=== PATIENT | male | born 1980 | race Caucasian/White ===

== ENCOUNTER 2017-10-11 18:27 | Emergency (ER) | payer OTHER ==
[2017-10-11 18:52] VITALS: BP 117/80; PULSE 65; TEMP 98.5; BMI 22.8
--- NOTE | 2017-10-11 19:12 | PDOC ---
History of Present Illness - History of Present Illness Initial Comments: 10/11/17 19:37 The patient is a 36 year old male, with no significant PMH, who presents to the emergency department complaining of pain to the 1st digit of the left foot today. The patient states he was at work when a table fell on his left foot. The patient reports he went to Urgent care today complaining of bleeding to the left 1st digit and they told him to report to the ED for IV antibiotics. The patient reports severe pain to the left toe, no relief with bacitracin. The patient denies any numbness or tingling. Denies any discharge or odor. PAST MEDICAL HISTORY: no significant history PAST SURGICAL HISTORY: no significant history FAMILY HISTORY: no pertinent history SOCIAL HISTORY: Pt lives with family and is employed. MEDICATIONS: reviewed ALLERGIES: As per nursing notes ROS General: No fevers or chills, no weakness, no weight loss CardioVascular: No chest pain or shortness of breath Respiratory:No cough, or wheezing. Gastrointestinal: no nausea, vomiting, diarrhea or constipation, No rectal bleeding Genitourinary: No dysuria, hematuria, or frequency Musculoskeletal: +Left greater toe pain. Neurologic: No headache, vertigo, dizziness or loss of consciousness Psychiatric: nor depression Skin: +Ecchymosis to the left greater toe All other systems reviewed and normal PE GENERAL: The patient is awake, alert, and fully oriented, in no acute distress. HEAD: Normal with no signs of trauma. EYES: Pupils equal, round and reactive to light, extraocular movements intact, sclera anicteric, conjunctiva clear. EXTREMITIES: +Tenderness to the left greater toe distally to palpation. No active bleeding but lifted with large subungual. NEUROLOGICAL: Normal speech. PSYCH: Normal mood, normal affect. SKIN: +Left greater toe swollen with ecchymosis <Sarika Thompson - Last Filed: 10/11/17 19:38> - General History Source: Patient Exam Limitations: No Limitations - History of Present Illness Initial Comments: A portion of this note was documented by scribe services under my direction. I have reviewed the details of the note, within reason, and agree with the documentation. The case summary and management plan written by me. Procedure note: Nail bed laceration repair Toe was anesthetized via digital block with 5 mL of lidocaine no epinephrine The toenail was removed and the nailbed was repaired with 4 absorbable sutures of 4. 0 Polysorb. Toenail was replaced and a dressing was placed over the toe. Patient tolerated well 10/11/17 20:38 Assessment and plan: This is a 36-year-old male with a fracture of the distal phalanx of his great toe secondary to a crush type injury while at work. The in addition to that there was a secondary nailbed laceration which required removal of the nail and repair the laceration. Patient was given Zosyn IV and discharged home with a prescription for Augmentin. Patient was also given 3 tablets of Percocet to take for the first 24 hours for pain. Patient discharged home with his <Angela Herrera I - Last Filed: 10/11/17 21:03> - General Chief Complaint: Pain, Acute Stated Complaint: LEFT 1ST TOE PAIN Time Seen by Provider: 10/11/17 19:08 Past History <Sarika Thompson - Last Filed: 10/11/17 19:38> - Past Medical History COPD: No Psychiatric Problems: Yes - Surgical History Abdominal Surgery: Yes (HERNIA) - Suicide/Smoking/Psychosocial Hx Smoking History: Never smoked Hx Alcohol Use: No Drug/Substance Use Hx: No Substance Use Type: None <Angela Herrera I - Last Filed: 10/11/17 21:03> - Past Medical History Allergies/Adverse Reactions: Allergies Allergy/AdvReac Type Severity Reaction Status Date / Time naproxen Allergy Verified 10/11/17 18:47 Home Medications: Ambulatory Orders Amoxicillin/Potassium Clav [Augmentin 500-125 Tablet] 1 each PO BID #14 tablet 10/11/17 Bupropion HCl [Wellbutrin Sr] 150 mg PO DAILY 10/11/17 Clonazepam [Klonopin] 1 - 2 mg PO ASDIR 10/11/17 Desvenlafaxine Succinate [Pristiq ER] 200 mg PO DAILY 10/11/17 Oxycodone HCl/Acetaminophen [Percocet 5-325 mg Tablet] 1 tab PO Q4H #6 tablet MDD 6 10/11/17 Quetiapine Fumarate [Seroquel -] 25 mg PO HS 10/11/17 *Physical Exam - Vital Signs Last Vital Signs Temp Pulse Resp BP Pulse Ox 98.5 F 65 18 117/80 100 10/11/17 18:28 08/04/18 18:28 10/11/17 18:28 10/11/17 18:28 10/11/17 18:28 <Sarika Thompson - Last Filed: 10/11/17 19:38> - Vital Signs Last Vital Signs Temp Pulse Resp BP Pulse Ox 98.5 F 65 18 117/80 100 10/11/17 18:28 10/11/17 18:28 10/11/17 18:28 10/11/17 18:28 10/11/17 18:28 <Angela Herrera I - Last Filed: 10/11/17 21:03> *DC/Admit/Observation/Transfer - Attestations Scribe Attestion: 10/11/17 19:38 Documentation prepared by Sarika Thompson, acting as medical education specialist for Angela Herrera MD. <Sarika Thompson - Last Filed: 10/11/17 19:38> <Angela Herrera I - Last Filed: 10/11/17 21:03> Diagnosis at time of Disposition: Fracture of left great toe Qualifiers: Encounter type: initial encounter Fracture type: open Phalanx: distal Fracture alignment: displaced Qualified Code(s): S92.422B - Displaced fracture of distal phalanx of left great toe, initial encounter for open fracture Nailbed laceration, toe Qualifiers: Encounter type: initial encounter Qualified Code(s): S91.219A - Laceration without foreign body of unspecified toe(s) with damage to nail, initial encounter - Discharge Dispostion Disposition: HOME Condition at time of disposition: Stable - Prescriptions Prescriptions: Amoxicillin/Potassium Clav [Augmentin 500-125 Tablet] 1 each PO BID #14 tablet Oxycodone HCl/Acetaminophen [Percocet 5-325 mg Tablet] 1 tab PO Q4H #6 tablet MDD 6 - Patient Instructions Additional Instructions: For the pain take ibuprofen you have prescriptions strength ibuprofen at home U can take that. In addition to that for the next 24 hours if you need something stronger you said a prescription for Percocet to your pharmacy. You can take one tablet as often as every 4-6 hours if needed To prevent an infection take Augmentin one tablet twice a day for 7 days. I am giving U an orthopedist to follow-up with call [phone] for an appointment Friday. Miguel tape the toe to the toe next to it. You can clean the toe with a little peroxide as needed for any oozing of blood from underneath the toenail. Wear a Band-Aid or dressing over the toenail to keep it in place for the next week to 10 days The toenail will eventually fall off and a new toenail will grow in. Return to the emergency department immediately with ANY new, persistent or worsening symptoms. Continue any medications as previously prescribed by your physician. You should follow up with your primary doctor as soon as possible regarding today's emergency department visit. . Please make sure your doctor reviews the results of your emergency evaluation. Thank you for coming to the Emergency Department today for your care. It was a pleasure to see you today. Please note that your evaluation is INCOMPLETE until you follow-up with your doctor.
[2017-10-11] MEDS ORDERED: PIPERACILLIN/TAZOB 3.375 GM 3.375 GM in DEXTROSE 5%-WATER - 50 ML IVPB ONE (20:02)
[2017-10-11] MEDS ORDERED: PIPERACILLIN/TAZOBACTAM 3.375 GM VIAL IVPB ONE (20:03)
== END 2017-10-11 21:05 | disposition home or self-care (01) ==
LOC: FER 18:27
PROC: 3E03329 Introduction of Other Anti-infective into Peripheral Vein, Percutaneous Approach (ICD-10-PCS; principal; 2017-10-11)
PROC: 0HQNXZZ Repair Left Foot Skin, External Approach (ICD-10-PCS; 2017-10-11)
DX: S92.422B Displaced fracture of distal phalanx of left great toe, initial encounter for open fracture (principal); S91.219A Laceration without foreign body of unspecified toe(s) with damage to nail, initial encounter; W20.8XXA Other cause of strike by thrown, projected or falling object, initial encounter; Y93.89 Activity, other specified; Y92.9 Unspecified place or not applicable; Y99.0 Civilian activity done for income or pay
CPT/HCPCS: 99282-25

== ENCOUNTER 2018-09-04 06:21 | Day surgery (SDC) | payer BC, OTHER ==
[2018-08-31 13:26] VITALS: BMI 24.2
[2018-09-04] MEDS ORDERED: BUPIVACAINE HCL 0.25% 125 MG/50 ML VIAL ONE ×2 (07:07→07:10)
[2018-09-04] MEDS ORDERED: EPINEPHrine 1:1,000 1 MG/1 ML - 30ML VIAL (INJECTION) ONE (07:07)
[2018-09-04] MEDS ORDERED: SUCCINYLCHOLINE CHLORIDE 200 MG/10 ML VIAL ONE (07:34)
[2018-09-04] MEDS ORDERED: MIDAZOLAM HCL 2 MG/2 ML SINGLE DOSE VIAL ONE (07:34)
[2018-09-04] MEDS ORDERED: PROPOFOL 20 ML ONE ×3 (07:34)
[2018-09-04] MEDS ORDERED: ePHEDrine SULFATE 50 MG/1 ML AMPULE ONE (07:35)
[2018-09-04] MEDS ORDERED: ONDANSETRON 4 MG/2 ML VIAL ONE (07:55)
[2018-09-04] MEDS ORDERED: LIDOCAINE HCL/PF 2% SDV 5ML VIAL ONE (07:55)
[2018-09-04] MEDS ORDERED: DEXAMETHASONE SOD PHOSPHATE 4 MG/1 ML VIAL ONE (07:55)
[2018-09-04] MEDS ORDERED: ceFAZolin SODIUM 1 GM VIAL ONE (07:55)
[2018-09-04] MEDS ORDERED: oxyCODONE HCL 5 MG TABLET PO PRN ×2 (08:17)
[2018-09-04] MEDS ORDERED: ONDANSETRON 4 MG/2 ML VIAL IVPUSH PRN (08:17)
[2018-09-04] MEDS ORDERED: ACETAMINOPHEN 1000 MG/100 ML VIAL (NON FORMULARY) IVPB ONE (08:19)
[2018-09-04] MEDS ORDERED: KETOROLAC TROMETHAMINE 30 MG/1 ML VIAL ONE (08:19)
[2018-09-04] MEDS ORDERED: LACTATED RINGERS SOLUTION 1,000 ML IV SCH (08:30)
[2018-09-04] MEDS ORDERED: ACETAMINOPHEN INJECTION 100 ML IVPB ONE (09:01)
[2018-09-04 10:26] VITALS: BP 114/67
[2018-09-04 10:29] VITALS: PULSE 68; TEMP 98
--- NOTE | 2018-09-05 07:26 | OP ---
DATE OF OPERATION: 09/04/2018 SURGEON: Winston Bosch MD ASSISSTANT: THOMAS Nelson PREOPERATIVE DIAGNOSIS: 1. Left knee medial and lateral meniscal tears. 2. Left right knee cartilage injury. 3. Left knee synovitis. POSTOPERATIVE DIAGNOSIS: 1. Left knee medial and lateral meniscal tears. 2. Left right knee cartilage injury. 3. Left knee synovitis. PROCEDURE: 1. Left knee arthroscopy with partial meniscectomies of medial and lateral meniscus (CPT code 94616). 2. Left knee arthroscopy with chondroplasty and abrasoplasty (CPT code 21121). 3. Left knee arthroscopy with synovectomy (CPT code 41874). FINDINGS: 1. Medial meniscus body and posterior horn tear, central 1/3, 6 cm in length 2. Lateral meniscus central body tear, 2 cm in length, central and 1/3. 3. Synovitis patellofemoral and medial lateral notch area. 4. Grade 1-2 cartilage injury, medial tibial plateau. 5. ACL and PCL intact. 6. Minor central grade 1-2 changes, lateral tibial plateau. 7. Central grade 1-2 cartilage injury, patella and patellofemoral trochlea with grade 4 changes and medial plica adhesions to anterior patellofemoral trochlea. DESCRIPTION OF PROCEDURE: Informed consent was obtained. The patient came to the operating room, where the lower extremity was prepped and draped in a sterile fashion. A tourniquet was placed on the upper thigh, but not inflated. Using standard arthroscopic technique, a lateral incision and portal was made to allow for introduction of the camera into the suprapatellar bursa. This was then taken to the medial joint line, where under direct visualization, a medial incision and portal was made. Excessive synovium noted in the medial, lateral and patellofemoral and notch area was removed by an upbiter, shaver and Bovie cautery. This was found to bring in inflammatory tissue into the joint surface, a source of pain and dysfunction. Probing of the medial and lateral meniscus found tears, as described in the findings. These were removed with the upbiter and shaver and taken back to a stable rim. Grade 2 to 3 degenerative changes were treated with a chondroplasty, removing all flaking surfaces with low-setting Bovie along the periphery to prevent further flaking. Grade 4 changes, as noted, were treated with an abrasoplasty, creating a bleeding surface at the bone/cartilage interface. Aggressive debridement with shaver/lynette created bleeding surface. Micro fracture also done when indicated in findings. All areas of the knee were once again reexamined. The knee was then drained and a single suture was placed in all portals. A sterile dressing was placed and the patient was transferred to the recovery room without complication. The PA listed above was present and assisted at surgery. Their presence was absolutely medically necessary for the completion of the procedure. They helped hold the arthroscopy, pass instruments (and implants when indicated) and the procedure could not have been completed without their assistance. WINSTON BOSCH M.D. [id number]
--- NOTE | 2018-09-09 16:34 | PATH ---
Surgical Pathology Report Patient Name: SHIRA BENSON Med. Rec. #: [id number] /Age/Gender: 1980 (Age: 37) / M Account: [id number] Location: [facility] Taken: 09/04/2018 Received: 09/04/2018 Reported: 09/09/2018 Physicians: Winston Linn M.D. Specimen(s) Received SHAVINGS LEFT KNEE Clinical History Internal derangement left knee Final Diagnosis KNEE, LEFT, ARTHROSCOPIC SHAVINGS: FIBROSYNOVIAL TISSUE, FIBROCOLLAGENOUS TISSUE AND CARTILAGE. Electronically Signed Soniya Loyd M.D. Gross Description Received in formalin, labeled "left knee shavings," is a 4.0 x 3.5 x 0.3 cm. aggregate of urena-yellow soft tissue fragments. A route sales representative portion is submitted in one cassette. /09/07/201809/07/2018
== END 2018-09-04 10:05 | disposition home or self-care (01) ==
LOC: FASU 06:21
PROVIDERS: ATTEND Orthopaedic Surgery
PROC: 0SBD4ZZ Excision of Left Knee Joint, Percutaneous Endoscopic Approach (ICD-10-PCS; 2018-09-04)
PROC: 0SBD4ZZ Excision of Left Knee Joint, Percutaneous Endoscopic Approach (ICD-10-PCS; 2018-09-04)
PROC: 0SBD4ZZ Excision of Left Knee Joint, Percutaneous Endoscopic Approach (ICD-10-PCS; principal; 2018-09-04 08:06)
DX: S83.242A Other tear of medial meniscus, current injury, left knee, initial encounter (principal); S83.282A Other tear of lateral meniscus, current injury, left knee, initial encounter; S83.8X2A Sprain of other specified parts of left knee, initial encounter; M65.862 Other synovitis and tenosynovitis, left lower leg; X58.XXXA Exposure to other specified factors, initial encounter; Y93.89 Activity, other specified; Y92.89 Other specified places as the place of occurrence of the external cause
CPT/HCPCS: 88304-TC; 94760; J0131

== ENCOUNTER 2020-06-08 19:31 | Emergency (ER) | payer BC ==
[2020-06-08 19:52] VITALS: BP 115/79; PULSE 78; TEMP 98.7; BMI 25.8
[2020-06-08] MEDS ORDERED: SULFAMETHOXAZOLE/TRIMETHOPRIM 800MG/160MG D.S. TABLET PO ONE (19:55)
[2020-06-08] MEDS ORDERED: SULFAMETHOXAZOLE/TRIMETHOPRIM 800MG/160MG D.S. TABLET ONE (19:56)
== END 2020-06-08 21:29 | disposition home or self-care (01) ==
LOC: FER 19:31
DX: L03.113 Cellulitis of right upper limb (principal); S83.91XA Sprain of unspecified site of right knee, initial encounter
CPT/HCPCS: 73562-TC-RT-FY; 99284-25

== ENCOUNTER 2020-06-09 15:06 | Emergency (ER) | payer BC ==
[2020-06-09] MEDS ORDERED: ACETAMINOPHEN 500 MG TABLET (FP) PO ONE (15:35)
[2020-06-09 15:40] VITALS: BP 120/72; PULSE 90; TEMP 98.4; BMI 25.7
[2020-06-09] MEDS ORDERED: SULFAMETHOXAZOLE/TRIMETHOPRIM 800MG/160MG D.S. TABLET PO ONE (15:43)
[2020-06-09] MEDS ORDERED: SULFAMETHOXAZOLE/TRIMETHOPRIM 800MG/160MG D.S. TABLET ONE (15:45)
[2020-06-09] MEDS ORDERED: ACETAMINOPHEN 500 MG TABLET (FP) ONE (15:46)
[2020-06-09 16:33] LABS: CALCIUM 8.6 mg/dl (8.5-10); CREATININE 1.1 mg/dl (0.55-1.3); POTASSIUM 4.2 mmol/L (3.5-5.1)
[2020-06-09 16:34] LABS: BASO % 0.5 % (0-2.0); EOS % 0.7 % (0-4.5); HEMATOCRIT 39.9 % (35.4-49); HEMOGLOBIN 13.6 GM/dl (11.7-16.9); LYMPH % 11.9 % (8-40); MCH 31.7 pg (25.7-33.7); MEAN CELL VOLUME 93.1 fl (80-96); MEAN PLT VOLUME 7.6 fl (7.5-11.1); MONO % 6.3 % (3.8-10.2); NEUT % 80.6 % (42.8-82.8); PLATELET COUNT 305 K/MM3 (134-434); RBC 4.29 M/mm3 (4.00-5.60); WHITE BLOOD COUNT 9.8 K/mm3 (4.0-10.8)
[2020-06-09] MEDS ORDERED: IBUPROFEN 400 MG TABLET (FP) PO ONE (17:03)
[2020-06-09] MEDS ORDERED: KETOROLAC TROMETHAMINE 15 MG/ML VIAL IVPUSH ONE (17:03)
[2020-06-09] MEDS ORDERED: KETOROLAC TROMETHAMINE 15 MG/ML VIAL ONE (17:04)
[2020-06-09] MEDS ORDERED: KETOROLAC TROMETHAMINE 15 MG/ML VIAL IM ONE (17:07)
== END 2020-06-09 17:18 | disposition home or self-care (01) ==
LOC: FER 15:06
PROC: 3E0333Z Introduction of Anti-inflammatory into Peripheral Vein, Percutaneous Approach (ICD-10-PCS; principal; 2020-06-09)
DX: M71.121 Other infective bursitis, right elbow (principal)
CPT/HCPCS: 36415; 73070-TC-RT-FY; 80048; 85025; 87040; 99284-25